=== PATIENT | male | born 1955 | race Caucasian/White ===

== ENCOUNTER 2017-02-23 06:53 | Day surgery (SDC) | payer BC ==
[2017-02-19 16:43] LABS: HEMOGLOBIN 13.5 g/dL (13.6-17.8)
[2017-02-19 16:45] LABS: HEMATOCRIT 41.3 % (40.0-51.0)
[2017-02-19 16:51] LABS: BUN (BLOOD UREA NITROGEN) 15 MG/DL (6-23); CALCIUM, SERUM 8.7 MG/DL (8.5-10.4); CHLORIDE, SERUM 109 MMOL/L (96-112); CO2 (CARBON DIOXIDE) 29 MMOL/L (24-34); GFR AFRICAN AMERICAN 78 ML/MIN (>=60); GFR NON AFRICAN AMERICAN 67 ML/MIN (>=60); GLUCOSE, SERUM 93 MG/DL (60-99); POTASSIUM, SERUM 3.5 MMOL/L (3.5-5.3); SODIUM, SERUM 144 MMOL/L (135-148)
[2017-02-19 16:52] LABS: CREATININE 1.17 MG/DL (0.70-1.30)
--- NOTE | ~2017-02-23 | OP ---
Record Of [facility] [address] [place]. [address] NAME: QUENTIN HYANES : 55 STATUS : [facility]#: [id number] AGE: 61 ADM/REG DATE : 02/23/17 MR#: [id number] REPORT SERV DATE: 02/27/17 DICTATED BY: JONNY MONTEIRO DATE: 02/27/17 REPORT STATUS : Draft TRANSCRIBED BY: MODL DATE: 02/27/17 DATE OF PROCEDURE: 02/23/2017 PREOPERATIVE DIAGNOSIS: Ischemic rest pain, right lower extremity. POSTOPERATIVE DIAGNOSIS: Ischemic rest pain, right lower extremity. PROCEDURE: 1. Ultrasound-guided percutaneous access bilateral common femoral arteries. 2. Right lower extremity arteriogram. 3. Abdominal aortogram. 4. Percutaneous thrombectomy right common iliac and external iliac arteries (Jetstream Navitus). 5. Percutaneous angioplasty right common iliac and external iliac arteries. 6. Primary stent placement in the right common iliac artery (8 mm x 37 mm Express stent). 7. Percutaneous angioplasty of left common iliac artery. 8. Stent placement in right external iliac artery (8 mm x 40 mm and 8 mm x 30 mm Protege Everflex). SURGEON: Jonny Monteiro M.D. DIRECTOR RECREATION: [place]. ANESTHESIA: Local with MAC. ESTIMATED BLOOD LOSS: 20 mL. CONTRAST: 120 mL. IV FLUIDS: 750 mL. COMPLICATIONS: None. INDICATIONS: Mr. Haynes is a pleasant, 61-year-old man with history of peripheral arterial disease. He has a prior history of stent placement in the common and external iliac arteries on the right. The stents have occluded. He has severe ischemia in the right leg with ischemic rest pain. He was recommended for arteriogram, percutaneous revascularization if possible. DETAILS OF PROCEDURE: After informed consent was obtained, the patient was brought to the endovascular suite and placed in supine position. After administration of IV sedation, he was prepped and draped in the usual sterile fashion. A time-out was performed. I commenced the procedure with ultrasound-guided percutaneous access of the right common femoral artery. This was done after anesthetizing the right groin with local anesthetic. Permanent image of the artery documenting patency was saved and stored in the patient's chart. I accessed the micropuncture needle and passed a micropuncture wire. I met resistance almost immediately Record Of [facility] [address] [place]. [address] NAME: QUENTIN HAYNES : 55 STATUS : [facility]#: [id number] AGE: 61 ADM/REG DATE : 02/23/17 MR#: [id number] REPORT SERV DATE: 02/27/17 DICTATED BY: JONNY MONTEIRO DATE: 02/27/17 REPORT STATUS : Draft TRANSCRIBED BY: MODL DATE: 02/27/17 in the stents within the external iliac artery. However, I was able to get enough access to place a micropuncture sheath. I then followed with a Geekatoo wire. Using that, I was able to cross through the occluded stents in the external common iliac arteries. I placed a 5- [place] sheath. I then advanced the [place] flush catheter in the abdominal aorta. Abdominal aortogram was performed, which showed the infrarenal aorta to be patent with no stenosis or aneurysmal disease. There is no thrombus. Single renal arteries were patent bilaterally with no stenosis. The left common iliac artery, external iliac artery and internal iliac arteries were patent. As mentioned, there were stents in place in the common and external iliac arteries on the right, which were occluded. I performed right leg runoff, which shows patency of the common femoral and deep femoral arteries. The SFA and popliteal arteries were patent throughout their length. There is two-vessel runoff below the knee in the posterior tibial and peroneal arteries. After that, I upsized to a 7-[place] sheath. We systemically heparinized. I exchanged the wire for a Spartacore wire. I then used a Jetstream Navitus to perform percutaneous thrombectomy of the right common and external iliac arteries. Repeat contrast injection now shows patency. However, the flow was still not normal. There was filling defect that is persistent in the right common iliac artery. I performed balloon angioplasty there, which did not resolve this. As a result, a secondary stent was determined to be needed. I was concerned, however, that this might impinge on flow in the left common iliac artery. As a result, I accessed the left common femoral artery under ultrasound and placed a 6-Rwandan sheath there. I advanced the wire up into the aorta. I placed a balloon expandable stent in the right common iliac artery, which is 8 x 37 Express stent while simultaneously inflating the balloon in the left common iliac artery. Repeat contrast injection shows satisfactory placement of the stent with improved flow. There was still filling defect in the external iliac artery, which is not resolved with repeat balloon angioplasty or repeat thrombectomy with the Jetstream. As a result, two self-expanding stents were placed here. This was an 8 mm x 40 mm and 8 mm x 30 mm self- expanding stent. Repeat contrast injection now shows external iliac, common iliac on the right to be widely patent with no stenosis. There was good flow distally with no evidence of distal embolization. Satisfied with that, wires and catheters were removed. Puncture sites were closed bilaterally with ProGlide closure device. The patient tolerated the procedure well with no complications. [place]/JAISON Jonny Monteiro M.D. / [id number] CC: Zack Hernández M.D.
[~2017-02-23 06:53] MED LIST: ADVIL PO; ASAB PO; ASPERCREME TOP; ATEN50 PO; CAT1 PO; CORDARONE PO; CYANO1000T PO; HALF81 PO; HYDROCHLOROT12.5 MG PO; KLOR-CON 1010 MEQ PO; LIPITOR40 PO; LISINOPRIL40 MG PO; LOP50 PO; NICODERM C14 MG/24 H TOP; NORCO1 TA1 PO; NORV10 PO; NORV25 PO; NORV5 PO; NTG150 SL; NTGOINTUD TOP; PRILO PO; PRILOSEC40 MG PO; V2 PO; ZOCOR40 PO
[2017-02-23] MEDS ORDERED: PLAVIX PO (13:46)
== END 2017-02-23 16:50 | disposition home or self-care (01) ==
LOC: SDC 06:53 → SSU1 11:44
PROVIDERS: Surgery
PROC: B400YZZ Plain Radiography of Abdominal Aorta using Other Contrast (ICD-10-PCS; principal; 2017-02-23 08:15)
PROC: 04CC3ZZ Extirpation of Matter from Right Common Iliac Artery, Percutaneous Approach (ICD-10-PCS; 2017-02-23 08:15)
PROC: 04CH3ZZ Extirpation of Matter from Right External Iliac Artery, Percutaneous Approach (ICD-10-PCS; 2017-02-23 08:15)
PROC: 047C3ZZ Dilation of Right Common Iliac Artery, Percutaneous Approach (ICD-10-PCS; 2017-02-23 08:15)
DX: I70.221 Atherosclerosis of native arteries of extremities with rest pain, right leg (principal); I10 Essential (primary) hypertension; I25.10 Atherosclerotic heart disease of native coronary artery without angina pectoris; I25.2 Old myocardial infarction; I48.91 Unspecified atrial fibrillation; E78.5 Hyperlipidemia, unspecified; M19.90 Unspecified osteoarthritis, unspecified site; K21.9 Gastro-esophageal reflux disease without esophagitis; K58.9 Irritable bowel syndrome, unspecified; Z95.1 Presence of aortocoronary bypass graft; Z88.5 Allergy status to narcotic agent; Z88.8 Allergy status to other drugs, medicaments and biological substances; Z86.73 Personal history of transient ischemic attack (TIA), and cerebral infarction without residual deficits; Z87.891 Personal history of nicotine dependence; Z87.01 Personal history of pneumonia (recurrent); Z79.02 Long term (current) use of antithrombotics/antiplatelets; Z79.82 Long term (current) use of aspirin; Z79.899 Other long term (current) drug therapy; Z98.890 Other specified postprocedural states
CPT/HCPCS: 36200; 37184; 37185; 37221; 37223; 75625; 75710; 76937; 80048; 85014; 85018; 93005; A9270-GY; C1714; C1725; C1760; C1769; C1876; C1884; C1894; J0690; J2250; J2405; J3010; Q9966